=== PATIENT | female | born 1960 | race Caucasian/White ===

== ENCOUNTER 2019-03-31 14:23 | Inpatient (IN) | payer MEDICARE ==
[~2019-03-31] VITALS: Ht 160 cm; Wt 99.4 kg
--- NOTE | 2019-03-31 16:09 | NUR ---
[place] 58 year old FEMALE admitted to room # 408-1 for stabilization. Reports an addiction to ALCOHOL last used 4 hours prior to admission. Compliant with admission procedure. Patient denies any anxiety, but is unable to sit still, taps toes to floor continuously, looks about room, unable to focus eyes on nurse during interview. See assessment forms for additional information about patient status.
[2019-03-31 16:10] VITALS: BP 156/79
--- NOTE | 2019-03-31 16:11 | NUR ---
PATIENT MEETS [facility]. CIWA=24. PATIENT WANTS TO FOLLOW UP WITH [facility] FOR HER AFTERCARE PLAN. NERY CHOW B.A. OPERATIONS AND MAINTENANCE TECHNICAN
[2019-03-31] MEDS ORDERED: GLUCOPHAGE1000 MG PO (16:15)
[2019-03-31] MEDS ORDERED: NEURONTIN PO (16:15)
[2019-03-31] MEDS ORDERED: PRILOSEC20 M1 PO (16:15)
[2019-03-31] MEDS ORDERED: NORVASC5 MG PO (16:16)
[2019-03-31] MEDS ORDERED: CRESTOR10 M1 PO (16:16)
[2019-03-31] MEDS ORDERED: VENLAFAXINE225 MG PO (16:17)
[2019-03-31] MEDS ORDERED: BUSPAR15 MG PO (16:17)
[2019-03-31] MEDS ORDERED: TRAZODONE50 MG PO (16:17)
[2019-03-31] MEDS ORDERED: HYDROCHLOROTHIA50 M1 PO (16:18)
--- NOTE | 2019-03-31 16:54 | NUR ---
SMALL AREA NOTED TO RIGHT HEEL. ADMISSION PHOTO OBTAINED PER POLICY. NOTIFIED REGARDING WOUND TREATMENT. AWAITING PHYSICIAN ORDERS.
[2019-03-31 17:31] LABS: BASO # 0.1 10*3/uL (0.0-0.1); BASO % 1.1 % (0.0-1.0); EOS % 0.3 % (1.0-4.0); HEMATOCRIT 39.1 % (37.0-47.0); HEMOGLOBIN 13.4 g/dl (12.0-16.0); LYMPH # 1.5 10*3/uL (1.3-4.4); LYMPH % 22.2 % (27.0-41.0); MEAN CELL VOLUME 93.3 fl (81.0-99.0); MEAN CORPUSCULAR HGB CONC 34.3 g/dl (33.0-37.0); MEAN PLATELET VOLUME 9.1 fl (9.6-12.3); MONO # 0.6 10*3/uL (0.1-1.0); MONO % 8.4 % (3.0-9.0); NEUT # 4.5 10*3/uL (2.3-7.9); NEUT % 67.7 % (47.0-73.0); PLATELET COUNT AUTOMATED 205 10*3/uL (130-400); RED BLOOD COUNT 4.19 10*6/uL (4.10-5.10); RED CELL DISTRI WIDTH 13.2 % (0-14.5); WHITE BLOOD COUNT 6.6 10*3/uL (4.8-10.8)
[2019-03-31 17:45] LABS: ALBUMIN 3.2 gm/dl (3.1-4.5); ALKALINE PHOSPHATASE 128 U/L (45-117); BUN 3 mg/dl (7-24); CHLORIDE 89 mmol/L (98-107); CREATININE 0.57 mg/dL (0.55-1.02); POTASSIUM 2.7 mmol/L (3.5-5.1); SGOT/AST 98 IU/L (3-35); SGPT/ALT 52 U/L (12-78); SODIUM 131 mmol/L (136-145); TOTAL PROTEIN 7.2 gm/dL (6.4-8.2)
[2019-03-31 17:47] LABS: ETHYL ALCOHOL < 3.0 mg/dl (<3)
--- NOTE | 2019-03-31 18:06 | NUR ---
HOME MEDICATION NEURONTIN BROUGHT IN BY PATIENT. MEDICATION SENT TO PHARMACY PER POLICY. PATIENT HAS TO HAVE LIQUID FORM.
[2019-03-31 18:08] LABS: BILIRUBIN 2+ (NEGATIVE); BLOOD NEGATIVE (NEGATIVE); CLARITY SL CLOUDY (CLEAR); COLOR YELLOW (YELLOW); GLUCOSE NEGATIVE (NEGATIVE); KETONE 3+ (NEGATIVE); LEUKO ESTERASE NEGATIVE (NEGATIVE); NITRITE NEGATIVE (NEGATIVE); SPECIFIC GRAVITY 1.025 (1.005-1.030)
[2019-03-31 18:22] LABS: BACTERIA 2+; EPITHELIAL CELLS 16-20; WBC 0-2 wbc/hpf (0-5)
[2019-03-31 18:26] LABS: URINE AMPHETAMINES < 1000 (1000ng/ml); URINE BARBITURATES < 200 (200ng/ml); URINE BENZODIAZEPINES < 200 (200ng/ml); URINE CANNABINOIDS (THC) < 50 (50ng/ml); URINE COCAINE < 300 (300ng/ml); URINE METHADONE < 300 (300ng/ml); URINE OPIATES < 300 (300ng/ml)
[2019-03-31 18:27] LABS: URINE PHENCYCLIDINE < 25 (25ng/ml)
--- NOTE | 2019-03-31 18:56 | NUR ---
ROBAXIN AND VISTARIL GIVEN AT THIS TIME PER PRN ORDER FOR C/O MUSCLE ACHES AND ANXIETY. ALSO GIVEN ROUTINE LIBRIUM. WILL MONITOR EFFECTIVENESS.
--- NOTE | 2019-03-31 19:08 | NUR ---
NOTIFIED REGARDING K LEVEL.
[2019-03-31 20:00] VITALS: BP 128/96
[2019-04-01] VITALS: BP 131/83
--- NOTE | 2019-04-01 05:54 | NUR ---
CHELSEY MIJARES [id number] Please refer to the physician's history and physical for past medical history, comorbid conditions, and allergies. Diagnosis: ALCOHOL WITHDRAWAL Mateusz Score: 19,LOW OR NO RISK WOUND DESCRIPTIONS: Wound Number: 1 & 2 Patient has multiple fissures noted to bilateral heels at time of assessment. Patient states this is an ongoing problem and she stated her doctor wants her to follow up with podiatry and try and get corrective footwear. Surface the patient is resting on: Isoflex SKIN PREVENTION RECOMMENDATION: 1. Pressure redistribution support surface as appropriate 2. Elevate heels 3. Remove boots/TEDS every shift and reapply 4. Head of bed 30 degrees as tolerated 5. Assess nutrition and hydration 6. Manage moisture 7. Avoid the use of containment devices while in bed 8. Use absorptive products on surfaces limit layers of linens on bed 9. Turn and reposition every 1-2 hours in bed and every 1 hour in chair as tolerated 10. Weight shifts every 15 minutes while up in chair 11. Offloading with pillows or device to keep heels elevated off bed 12. Monitor skin at least every shift 13. Inspect under medical devices twice a day WOUND TREATMENT RECOMMENDATIONS: Cleanse bilateral feet with soap and water and dry throughly then apply lac-hydrin bid Heel raiser pro boots to bilateral feet while in bed. Patient stated she will follow with podiatry closer to her home upon discharge.
[2019-04-01 07:26] LABS: BUN 4 mg/dl (7-24); CHLORIDE 95 mmol/L (98-107); CREATININE 0.62 mg/dL (0.55-1.02); POTASSIUM 2.6 mmol/L (3.5-5.1); SODIUM 139 mmol/L (136-145)
[2019-04-01 08:00] VITALS: BP 107/69
--- NOTE | 2019-04-01 08:47 | NUR ---
Dr. Amaya notified of wound care recommendations.
--- NOTE | 2019-04-01 11:45 | NUR ---
ROUTINE LIBRIUM GIVEN AT THIS TIME. PT RESTING QUIELTY IN BED. PT DENIES ANY PAIN/DISCOMFORT AT THIS TIME. NO TREMORS NOTED. DENIES ANY N/V/D. WILL CONTINUE TO MONITOR. CALL LIGHT WITHIN REACH. VSS.
[2019-04-01 12:00] VITALS: BP 111/78; BP 116/56
--- NOTE | 2019-04-01 14:35 | NUR ---
PATIENT IS STILL TO FOLLOW UP WITH [facility] IN [place] FOR HER AFTERCARE PLAN. NERY CHOW B.A. AUTOMATION TECHNOLOGIST
--- NOTE | 2019-04-01 15:15 | NUR ---
PATIENTS BROUGHT IN HER CPAP. WORK ORDER SENT TO HAVE C-PAP INSPECTED PER POLICY.
[2019-04-01 16:00] VITALS: BP 99/62
--- NOTE | 2019-04-01 16:50 | NUR ---
PATIENT C/O INCREASED ANXIETY AND TENSION. PRN VISTARIL & ROBAXIN GIVEN PER ORDER. WILL MONITOR FOR EFFECTIVENESS.
--- NOTE | 2019-04-01 19:06 | NUR ---
PT IS AWAKE AND SITTING UP IN BED AT THIS TIME. NO S/S OF DISTRESS NOTED. SHE STATES THAT SHE IS FEELING WELL BUT IS VERY TIRED D/T NOT SLEEPING WELL. PT STATES THAT HER BROUGHT HER HOME CPAP SO SHE IS HOPEFUL TO REST BETTER TONIGHT. BED LOW, CALL LIGHT WITHIN REACH, WILL CONTINUE TO MONITOR.
--- NOTE | 2019-04-01 19:14 | NUR ---
24 HR CHART CHECK COMPLETE
[2019-04-01 20:00] VITALS: BP 112/71
[2019-04-02] VITALS: BP 129/90
--- NOTE | 2019-04-02 05:28 | NUR ---
PT MEDICATED WITH PRN TYLENOL FOR FEVER OF 101.1 WILL MOITOR FOR EFFECTIVENESS.
[2019-04-02 06:27] LABS: BUN 7 mg/dl (7-24); CHLORIDE 99 mmol/L (98-107); CREATININE 0.66 mg/dL (0.55-1.02); POTASSIUM 3.1 mmol/L (3.5-5.1); SODIUM 137 mmol/L (136-145)
--- NOTE | 2019-04-02 06:30 | NUR ---
PT'S TEMP 101.8 TYLENOL INEFFECTIVE
--- NOTE | 2019-04-02 06:45 | NUR ---
PT MEDICATED WITH PRN MOTRIN FOR FEVER OF 101.8. WILL MONITOR FOR EFFECTIVENESS.
[2019-04-02 07:11] LABS: BASO % 0.3 % (0.0-1.0); EOS % 0.5 % (1.0-4.0); HEMATOCRIT 38.9 % (37.0-47.0); HEMOGLOBIN 12.6 g/dl (12.0-16.0); LYMPH # 0.8 10*3/uL (1.3-4.4); LYMPH % 13.1 % (27.0-41.0); MEAN CORPUSCULAR HGB 32.6 pg (27.0-31.0); MEAN CORPUSCULAR HGB CONC 32.4 g/dl (33.0-37.0); MEAN PLATELET VOLUME 9.9 fl (9.6-12.3); MONO # 0.2 10*3/uL (0.1-1.0); MONO % 3.1 % (3.0-9.0); NEUT # 5.3 10*3/uL (2.3-7.9); NEUT % 82.5 % (47.0-73.0); PLATELET COUNT AUTOMATED 157 10*3/uL (130-400); RED BLOOD COUNT 3.86 10*6/uL (4.10-5.10); RED CELL DISTRI WIDTH 13.4 % (0-14.5); WHITE BLOOD COUNT 6.4 10*3/uL (4.8-10.8)
--- NOTE | 2019-04-02 07:15 | NUR ---
PTS TEMP AT THIS TIME IS 99.1. PRN MOTRIN EFFECTIVE.
[2019-04-02 07:16] LABS: MEAN CELL VOLUME 100.8 fl (81.0-99.0)
--- NOTE | 2019-04-02 07:55 | NUR ---
PATIENT C/O MUSCLE ACHES ALL OVER. MEDICATED WITH ROBAXIN PER PRN ORDER. WILL CONTINUE TO MONITOR.
[2019-04-02 08:00] VITALS: BP 126/83
--- NOTE | 2019-04-02 09:00 | NUR ---
PATIENT RESTING QUIETLY. ALBINO EFFECTIVE. WILL CONTINUE TO MONITOR.
[2019-04-02 12:00] VITALS: BP 99/65
--- NOTE | 2019-04-02 12:01 | NUR ---
PATIENT IS GOING TO [facility] FOR HER AFTERCARE PLAN. PATIENT'S APPOINTMENT IS FRIDAY, AT 10:00AM. PATIENT AGREES AND UNDERSTANDS HER AFTERCARE PLAN. NERY CHOW B.A.HIGH RISK OB
[2019-04-02 17:00] VITALS: BP 120/76
[2019-04-02 20:00] VITALS: BP 109/69
[2019-04-03] VITALS: BP 121/71
[2019-04-03 06:48] LABS: BUN 8 mg/dl (7-24); CHLORIDE 100 mmol/L (98-107); POTASSIUM 2.9 mmol/L (3.5-5.1); SODIUM 137 mmol/L (136-145)
[2019-04-03 08:00] VITALS: BP 141/80
[2019-04-03 08:45] VITALS: BP 120/76
--- NOTE | 2019-04-03 10:40 | NUR ---
PATIENT AMBULATING IN HALLWAYS WITH PORTABLE O2 TANK AND ONE ASSIST-CREDIT OPERATIONS PROCESSOR.
[2019-04-03 12:00] VITALS: BP 105/58
--- NOTE | 2019-04-03 13:50 | NUR ---
MEDICATED WITH PRN PO MOTRIN FOR BACK AND RIBCAGE PAIN.
--- NOTE | 2019-04-03 14:30 | NUR ---
PRN PO MOTRIN EFFECTIVE, PER PATIENT.
[2019-04-03 16:00] VITALS: BP 112/71
--- NOTE | 2019-04-03 19:38 | NUR ---
Placed patient on her home CPAP due to low SPO2 of 84% on 4L nasal cannula. Pt has rebounded to 95% w/ 02 bleed in. No signs of distress.
[2019-04-03 20:00] VITALS: BP 103/70
--- NOTE | 2019-04-03 20:14 | NUR ---
Patient's home CPAP unit seems to be malfunctioning. Order obtained for continuation of home settings using one of our units. Transferred patient to our CPAP unit. Pt SPO2 then increased to 97% on less oxygen than was being used on home unit. No signs of distress noted. Patient is comfortable.
--- NOTE | 2019-04-03 22:30 | NUR ---
TOOK PO MEDICATIONS WITHOUT DIFFICULTY. PT. VOICES NO C/O AT THIS TIME. CPAP INTACT. PULSE OX IN THE HIGH 90'S. NO DISTRESS NOTED. CALL LIGHT WITHIN REACH.
[2019-04-04] VITALS: BP 97/61
--- NOTE | 2019-04-04 03:30 | NUR ---
RESTING IN BED WITH EYES CLOSED. PULSE OX 98% ON CPAP. NO DISTRESS NOTED; CALL LIGHT WITHIN REACH.
--- NOTE | 2019-04-04 06:30 | NUR ---
REQUESTING CPAP BE TAKEN OFF; PT. PLACED ON O2 3 LITERS VIA NASAL CANNULA. BLOOD SUGAR 143; NO COVERAGE REQUIRED. PT. VOICES NO C/O AT THIS TIME. CALL LIGHT WITHIN REACH.
[2019-04-04 06:33] LABS: BUN 9 mg/dl (7-24); CHLORIDE 102 mmol/L (98-107); CREATININE 0.62 mg/dL (0.55-1.02); POTASSIUM 3.5 mmol/L (3.5-5.1); SODIUM 139 mmol/L (136-145)
[2019-04-04 07:03] LABS: BASO % 0.5 % (0.0-1.0); EOS # 0.1 10*3/uL (0.0-0.4); EOS % 1.1 % (1.0-4.0); HEMATOCRIT 34.2 % (37.0-47.0); HEMOGLOBIN 11.1 g/dl (12.0-16.0); LYMPH # 1.3 10*3/uL (1.3-4.4); LYMPH % 19.9 % (27.0-41.0); MEAN CELL VOLUME 100.3 fl (81.0-99.0); MEAN CORPUSCULAR HGB 32.6 pg (27.0-31.0); MEAN CORPUSCULAR HGB CONC 32.5 g/dl (33.0-37.0); MEAN PLATELET VOLUME 10.4 fl (9.6-12.3); MONO # 0.5 10*3/uL (0.1-1.0); MONO % 7.1 % (3.0-9.0); NEUT # 4.5 10*3/uL (2.3-7.9); NEUT % 70.2 % (47.0-73.0); PLATELET COUNT AUTOMATED 131 10*3/uL (130-400); RED BLOOD COUNT 3.41 10*6/uL (4.10-5.10); RED CELL DISTRI WIDTH 13.7 % (0-14.5); WHITE BLOOD COUNT 6.5 10*3/uL (4.8-10.8)
[2019-04-04 08:00] VITALS: BP 114/74
--- NOTE | 2019-04-04 08:56 | NUR ---
MEDICATED WITH PRN PO MOTRIN FOR RIB CAGE PAIN DUE TO FREQUENT NONPRODUCTIVE COUGH.
--- NOTE | 2019-04-04 09:15 | NUR ---
PRN PO MOTRIN EFFECTIVE, PER PATIENT.
[2019-04-04 12:00] VITALS: BP 95/55
[2019-04-04 16:00] VITALS: BP 93/53
--- NOTE | 2019-04-04 17:20 | NUR ---
MEDICATED WITH PRN PO MOTRIN FOR BACK AND RIBS SORENESS.
[2019-04-04 20:00] VITALS: BP 106/72
--- NOTE | 2019-04-04 20:40 | NUR ---
PT MEDICATED W/ES TYLENOL FOR C/O SORE RIB PAIN 11/27. PT STATES SHE CONTINUES TO HAVE A NON PRODUCTIVE COUGH. DENIES ANY NAUSEA. PT EATING A SANDWICH AT THIS TIME. CALL LIGHT IN REACH.
--- NOTE | 2019-04-04 21:18 | NUR ---
DR. STEWART NOTIFIED OF PT'S REQUEST FOR AEROSOL TX'S. DR. VARGAS ORDER.
--- NOTE | 2019-04-04 21:56 | NUR ---
PT STATES THAT TYLENOL WAS EFFECTIVE FOR PAIN RELIEF. PT STATES SHE HAS BEEN HAVING [employer] AND CALLING OUT [employer] NAMES. PT TEACHING ON NO NEW MEDS AT THIS TIME BESIDES IV ATBS. WILL MONITOR.
[2019-04-05] VITALS: BP 92/59
--- NOTE | 2019-04-05 01:27 | NUR ---
24 HR chart check completed.
[2019-04-05 08:00] VITALS: BP 105/69
[2019-04-05 08:11] VITALS: BP 102/60
--- NOTE | 2019-04-05 08:57 | NUR ---
HELD NORVASC AND HCTZ FOR BP 102/60 MANUALLY THIS MORNING.
[2019-04-05] MEDS ORDERED: AUGMENTIN 875-875 MG PO (09:34)
[2019-04-05] MEDS ORDERED: NATURE'S BLEND F1 MG PO (09:34)
[2019-04-05 12:00] VITALS: BP 99/73
--- NOTE | 2019-04-05 13:15 | NUR ---
PHYSICAL THERAPY Physical therapy evaluation complete, 4E. Full evaluation/details to follow. Low complexity PT evaluation (76163) per chart review and evaluation. Recommend PT to continue with transfers, gait, safety per POC. Recommend use of front wheel walker for increased safety and discharge home with home health PT services. Thank you. Olivia Saxena,PT,DPT
--- NOTE | 2019-04-05 13:49 | NUR ---
PHYSICAL THERAPY IN TO EVALUATE PATIENT/ASSESS FOR MOBILITY ISSUES PRIOR TO DISCHARGE. HOME PHYSICAL THERAPY RECCOMMENDED, CASE MANAGEMENT SET UP HOME HEALTH CARE SERVICES FOR PT AT HOME. [facility] WAS IN EARLIER TO DISCUSS COUNSELING FOLLOW UP APPOINTMENTS ALSO. Discharge instructions reviewed with patient. Patient receptive and verbalizes understanding. Follow-up care arranged. Written instructions given to patient. Printed prescriptions provided. PATIENT AWAITING RIDE HOME WITH LATER THIS EVENING. LATA MITCHELL
[2019-04-05] MEDS ORDERED: WALKER (14:26)
--- NOTE | 2019-04-05 15:38 | NUR ---
PATIENT DISCHARGED TO FRONT LOBBY BY WHEELCHAIR, ACCOMPANIED BY [facility], FOR TRANSPORT HOME BY PRIVATE VEHICLE WITH .
--- NOTE | 2019-04-06 07:44 | NUR ---
PHYSICAL THERAPY CO-SIGN I approve of the Physical Therapy notes written above. ADINA DE LA VEGA PT, DPT
== END 2019-04-05 15:38 | disposition home or self-care (01) | DRG 871 ==
LOC: 4E 14:23
PROVIDERS: Internal Medicine; ADMIT Internal Medicine
PROC: 5A09357 Assistance with Respiratory Ventilation, Less than 24 Consecutive Hours, Continuous Positive Airway Pressure (ICD-10-PCS; principal; 2019-04-04)
PROC: 5A09357 Assistance with Respiratory Ventilation, Less than 24 Consecutive Hours, Continuous Positive Airway Pressure (ICD-10-PCS; 2019-04-05)
DX: A41.9 Sepsis, unspecified organism (principal); J96.01 Acute respiratory failure with hypoxia; J69.0 Pneumonitis due to inhalation of food and vomit; E87.1 Hypo-osmolality and hyponatremia; F10.10 Alcohol abuse, uncomplicated; I10 Essential (primary) hypertension; F41.9 Anxiety disorder, unspecified; K21.9 Gastro-esophageal reflux disease without esophagitis; E78.5 Hyperlipidemia, unspecified; F32.9 Major depressive disorder, single episode, unspecified; G47.00 Insomnia, unspecified; G47.33 Obstructive sleep apnea (adult) (pediatric); E87.6 Hypokalemia; E66.9 Obesity, unspecified; R74.0 Nonspecific elevation of levels of transaminase and lactic acid dehydrogenase [LDH]; Z96.653 Presence of artificial knee joint, bilateral; R65.20 Severe sepsis without septic shock; R26.81 Unsteadiness on feet; E11.9 Type 2 diabetes mellitus without complications; Z86.73 Personal history of transient ischemic attack (TIA), and cerebral infarction without residual deficits; Z90.710 Acquired absence of both cervix and uterus; Z82.5 Family history of asthma and other chronic lower respiratory diseases; Z88.8 Allergy status to other drugs, medicaments and biological substances; Z91.041 Radiographic dye allergy status; Z91.040 Latex allergy status; Z79.899 Other long term (current) drug therapy; Z68.38 Body mass index [BMI] 38.0-38.9, adult

== ENCOUNTER 2020-02-29 10:48 | Inpatient (IN) | payer OTHER ==
[~2020-02-29] VITALS: Ht 160 cm; Wt 116.2 kg
[~2020-02-29 10:48] MED LIST: AUGMENTIN 875-875 MG PO; BUSPAR15 MG PO; CRESTOR10 M1 PO; GLUCOPHAGE1000 MG PO; HYDROCHLOROTHIA50 M1 PO; NATURE'S BLEND F1 MG PO; NEURONTIN PO; NORVASC5 MG PO; PRILOSEC20 M1 PO; TRAZODONE50 MG PO; VENLAFAXINE225 MG PO; WALKER
[2020-02-29 12:20] VITALS: BP 144/78
--- NOTE | 2020-02-29 12:20 | NUR ---
59 year old FEMALE admitted to room # 521 for stabilization. Reports an addiction to ALCOHOL last used 11PM prior to admission. Compliant with admission procedure. See assessment forms for additional information about patient status.
--- NOTE | 2020-02-29 12:53 | NUR ---
PATIENT MEETS [facility]. CIWA=20. [facility]. NERY CHOW B.A. AIR EXPORT COORDINATOR
[2020-02-29] MEDS ORDERED: PEPCID40 MG PO (13:56)
[2020-02-29] MEDS ORDERED: VITAMIN B150 MG PO (13:57)
[2020-02-29] MEDS ORDERED: NEURONTIN800 MG PO (13:57)
[2020-02-29 14:38] LABS: BILIRUBIN NEGATIVE (NEGATIVE); BLOOD NEGATIVE (NEGATIVE); CLARITY CLEAR (CLEAR); COLOR YELLOW (YELLOW); GLUCOSE NEGATIVE (NEGATIVE); KETONE NEGATIVE (NEGATIVE); NITRITE NEGATIVE (NEGATIVE); SPECIFIC GRAVITY 1.005 (1.005-1.030); UROBILINOGEN 0.2 E.U./dl (0.2-1.0)
[2020-02-29 14:44] LABS: BACTERIA 1+; EPITHELIAL CELLS 0-2; LEUKO ESTERASE TRACE (NEGATIVE); RBC 0-2 rbc/hpf (0-2)
[2020-02-29 14:49] LABS: BASO % 0.8 % (0.0-1.0); EOS # 0.1 10*3/uL (0.0-0.4); EOS % 1.2 % (1.0-4.0); HEMATOCRIT 36.1 % (37.0-47.0); LYMPH # 1.4 10*3/uL (1.3-4.4); LYMPH % 28.4 % (27.0-41.0); MEAN CELL VOLUME 84.7 fl (81.0-99.0); MEAN CORPUSCULAR HGB 26.8 pg (27.0-31.0); MEAN CORPUSCULAR HGB CONC 31.6 g/dl (33.0-37.0); MEAN PLATELET VOLUME 9.9 fl (9.6-12.3); MONO # 0.6 10*3/uL (0.1-1.0); MONO % 12.6 % (3.0-9.0); NEUT # 2.8 10*3/uL (2.3-7.9); PLATELET COUNT AUTOMATED 197 10*3/uL (130-400); RED BLOOD COUNT 4.26 10*6/uL (4.10-5.10); RED CELL DISTRI WIDTH 17.1 % (0-14.5); WHITE BLOOD COUNT 4.9 10*3/uL (4.8-10.8)
[2020-02-29 15:02] LABS: ALBUMIN 3.4 gm/dl (3.1-4.5); ALKALINE PHOSPHATASE 121 U/L (45-117); BUN 5 mg/dl (7-24); CHLORIDE 99 mmol/L (98-107); CREATININE 0.71 mg/dL (0.55-1.02); POTASSIUM 3.5 mmol/L (3.5-5.1); SGOT/AST 92 IU/L (3-35); SGPT/ALT 58 U/L (12-78); SODIUM 135 mmol/L (136-145); TOTAL PROTEIN 7.7 gm/dL (6.4-8.2)
[2020-02-29 15:04] LABS: ETHYL ALCOHOL < 3.0 mg/dl (<3)
[2020-02-29 15:32] LABS: URINE AMPHETAMINES < 1000 (1000ng/ml); URINE BARBITURATES < 200 (200ng/ml); URINE BENZODIAZEPINES < 200 (200ng/ml); URINE CANNABINOIDS (THC) < 50 (50ng/ml); URINE COCAINE < 300 (300ng/ml); URINE METHADONE < 300 (300ng/ml); URINE OPIATES < 300 (300ng/ml)
[2020-02-29 15:33] LABS: URINE PHENCYCLIDINE < 25 (25ng/ml)
[2020-02-29 16:00] VITALS: BP 166/92
[2020-02-29 20:00] VITALS: BP 144/69
[2020-02-29] MEDS ORDERED: BUSPIRONE HCL30 MG PO (21:53)
[2020-02-29] MEDS ORDERED: CRESTOR10 M1 PO (21:54)
[2020-03-01] VITALS: BP 123/86
--- NOTE | 2020-03-01 02:31 | NUR ---
PATIENT SLEEPING, EASY REGULAR RESPIRATIONS ON ROOM AIR, HR 84 PER CM
[2020-03-01 08:00] VITALS: BP 160/94
--- NOTE | 2020-03-01 09:37 | NUR ---
PT REQUESTED AND WAS MEDICATED WITH ROBAXIN, VISTIRIL AND MAALOX FOR C/O MUSCLE ACHES, ANXIETY AND HEARTBURN. CALL LIGHT IN REACH. WILL MONITOR
--- NOTE | 2020-03-01 10:20 | NUR ---
MEDICATIONS EFFECTIVE PER PT.
--- NOTE | 2020-03-01 10:41 | NUR ---
PT SHOWERED SELF
[2020-03-01 12:00] VITALS: BP 137/82
--- NOTE | 2020-03-01 13:30 | NUR ---
Patient resting quietly with no c/o discomfort. Respirations easy and regular. No overt distress. RADHA VEGA
[2020-03-01 16:00] VITALS: BP 138/79
--- NOTE | 2020-03-01 16:28 | NUR ---
PT REQUESTED AND WAS MEDICATED WITH ROBAXIN FOR C/O MUSCLE ACHES. WILL MONITOR
--- NOTE | 2020-03-01 16:51 | NUR ---
[place] STAFF IN TO SEE PATIENT. PATIENT'S AFTERCARE REMAINS THE SAME. NERY CHOW B.A. MANAGER OF HOUSEKEEPING
--- NOTE | 2020-03-01 17:20 | NUR ---
MEDICATION EFFECTIVE PER PT. WILL MONITOR
[2020-03-01 20:00] VITALS: BP 130/78
[2020-03-02] VITALS: BP 148/81
--- NOTE | 2020-03-02 01:36 | NUR ---
PATIENT MEDICATED WITH ROBAXIN FOR MUSCLE PAIN AND VISTARIL FOR ANXIETY. WILL MONITOR FOR EFFECTIVENESS.
--- NOTE | 2020-03-02 02:30 | NUR ---
ROBAXIN AND VISTARIL EFFECTIVE. PATIENT IN BED SNORING AT THIS TIME. NO SIGNS OR SYMPTOMS OF DISTRESS NOTED. CALL LIGHT IN REACH.
--- NOTE | 2020-03-02 07:50 | NUR ---
ASSUMED CARE FOR PT AT THIS TIME, PA NOTIFIED NURSE THAT PT PULLED OUT IV, SITE ASYMPTOMATIC AND NO BLEEDING NOTED AT SITE, DENIES PAIN TO SITE. WILL RESTART IV.
[2020-03-02 08:00] VITALS: BP 154/88
--- NOTE | 2020-03-02 08:00 | NUR ---
IV started right antecubital with #22 protective cath after 1 attempts. Site prepped with Chloroprep. Sterile dressing applied. Patient tolerated procedure well. COOPER REAVES
--- NOTE | 2020-03-02 09:00 | NUR ---
TELE MONITOR D/C AT THIS TIME PER ORDER, MONITOR INTACT. PROFESSOR OF HISTORICAL THEOLOGY MADE AWARE.
--- NOTE | 2020-03-02 09:02 | NUR ---
PT REPORTS FEELINGS OF AGITATION, DENIES SHAKES, N/V/D, HEADAHCES, BODY ACHES. REQUESTING PRN ROBAXIN AND VISTARIL AT THIS ITME, SEE EMAR.
--- NOTE | 2020-03-02 10:02 | NUR ---
PT REPORTS PRN EFFECTIVE.
[2020-03-02 12:00] VITALS: BP 152/92
--- NOTE | 2020-03-02 12:02 | NUR ---
PT RESTING IN BED, NO DISTRESS NOTED. NO S/S OF WITHDRAWL REPORTED.
--- NOTE | 2020-03-02 13:17 | NUR ---
[facility] STAFF IN TO SEE PATIENT. PATIENT IS GOING TO FOLLOW UP WITH [facility] FOR HER [facility] PL[facility]. PATIENT WANTED TO SCHEDULE HER OWN APPOINTMENT. [facility] STAFF PROVIDED HER WITH THE DIRECT PHONE NUMBER TO FACILITY. PATIENT ALSO FOLLOWS UP WITH [facility] FOR COUNSELING. PATIENT AGREES AND UNDERSTANDS HER AFTERCARE PLAN. NERY CHOW B.A. BIOINFORMATICS SOFTWARE ENGINEER
[2020-03-02 16:00] VITALS: BP 158/91
--- NOTE | 2020-03-02 16:00 | NUR ---
PT RESTING IN BED, NO DISTRESS NOTED. CALL LIGHT WITHIN REACH, SIDE RAILS UP X2, BED IN LOWEST POSITION.
--- NOTE | 2020-03-02 16:55 | NUR ---
Shift chart check completed.
--- NOTE | 2020-03-02 17:02 | NUR ---
PT REQUESTING PRN VISTARIL AND ROBAXIN AT THIS TIME, SEE EMAR FOR ADMINSTRATION.
--- NOTE | 2020-03-02 17:32 | NUR ---
PRN MEDS REPORTED EFFECITVE PER PT.
[2020-03-02 20:00] VITALS: BP 153/93
--- NOTE | 2020-03-02 21:24 | NUR ---
PATIENT MEDICATED WITH ZOFRAN D/T PATIENT SAID SHE WAS SLEEPING AND SHE THREW UP AND ASPIRATED. LUNGS CLEAR AT THIS TIME. WILL CONTINUE TO MONITOR. CALL LIGHT IN REACH.
[2020-03-03] VITALS: BP 136/83
--- NOTE | 2020-03-03 01:36 | NUR ---
PATIENT MEDICATED WITH ROBAXIN FOR MUSCLE PAIN AND VISTARIL FOR ANXIETY. WILL CONTINUE TO MONITOR. CALL LIGHT IN REACH.
--- NOTE | 2020-03-03 02:07 | NUR ---
ROBAXIN AND VISTARIL EFFECTIVE.
--- NOTE | 2020-03-03 07:50 | NUR ---
ASSUMED CARE FOR PT, PT RESTING IN BED, CONSUMING BREAKFAST, NO DISTRESS NOTED. CALL LIGHT WITHIN REACH, SIDE RAILS UPX 2, BED IN LOWEST POSITION.
[2020-03-03 08:00] VITALS: BP 124/70
--- NOTE | 2020-03-03 09:52 | NUR ---
PT REQUESTING PRN VISTARIL AND ROBAXIN AT THIS TIME. SEE EMAR.
--- NOTE | 2020-03-03 10:30 | NUR ---
PT RESTING IN BED, DENIES AGITATION. PRNS REPORTED EFFECITVE, CALL LIGHT WITHIN REACH.
--- NOTE | 2020-03-03 11:56 | NUR ---
Shift chart check completed.
[2020-03-03 12:00] VITALS: BP 130/69
[2020-03-03 16:00] VITALS: BP 123/72
--- NOTE | 2020-03-03 16:00 | NUR ---
PT RESTING IN BED, EYES CLOSED. NO DISTRESS NOTED, AWAITING RIDE FOR DISCHARGE.
--- NOTE | 2020-03-03 16:44 | NUR ---
Patient discharged in stable condition, referral letter provided to patient with specific instructions and appointment for ongoing treatment. Patient verbalizes understanding of discharge plan.
--- NOTE | 2020-03-03 16:44 | NUR ---
IV discontinued. Site asymptomatic. Pressure applied. Sterile dressing applied. COOPER REAVES
== END 2020-03-03 16:44 | disposition home or self-care (01) | DRG 897 ==
LOC: 5E 10:48
PROVIDERS: Physical Therapist; ADMIT Family Medicine
DX: F10.230 Alcohol dependence with withdrawal, uncomplicated (principal); E87.1 Hypo-osmolality and hyponatremia; B49 Unspecified mycosis; R00.0 Tachycardia, unspecified; K21.9 Gastro-esophageal reflux disease without esophagitis; K44.9 Diaphragmatic hernia without obstruction or gangrene; F32.9 Major depressive disorder, single episode, unspecified; F41.9 Anxiety disorder, unspecified; D64.9 Anemia, unspecified; D75.82 Heparin induced thrombocytopenia (HIT); E11.40 Type 2 diabetes mellitus with diabetic neuropathy, unspecified; I10 Essential (primary) hypertension; R26.81 Unsteadiness on feet; E66.01 Morbid (severe) obesity due to excess calories; G47.00 Insomnia, unspecified; G47.33 Obstructive sleep apnea (adult) (pediatric); E78.5 Hyperlipidemia, unspecified; Z90.710 Acquired absence of both cervix and uterus; Z86.73 Personal history of transient ischemic attack (TIA), and cerebral infarction without residual deficits; Z90.49 Acquired absence of other specified parts of digestive tract; Z96.653 Presence of artificial knee joint, bilateral; Z82.49 Family history of ischemic heart disease and other diseases of the circulatory system; Z83.6 Family history of other diseases of the respiratory system; Z88.8 Allergy status to other drugs, medicaments and biological substances; Z91.040 Latex allergy status; Z79.84 Long term (current) use of oral hypoglycemic drugs; Z79.899 Other long term (current) drug therapy